=== PATIENT | male | born 1950 | race Caucasian/White ===

== ENCOUNTER → 2020-07-13 | Outpatient (REF) | payer MEDICARE, OTHER | LOC: M SFHCADAM 16:36 | PROVIDERS: ATTEND Physician Assistant Medical | DX: J67.0 Farmer's lung (principal) ==

== ENCOUNTER → 2020-12-13 | Outpatient (REF) | payer MEDICARE, OTHER | LOC: M SFHCADAM 14:18 | PROVIDERS: ATTEND Physician Assistant Medical | DX: Z53.9 Procedure and treatment not carried out, unspecified reason (principal); I48.91 Unspecified atrial fibrillation ==

== ENCOUNTER → 2022-05-26 | Outpatient (CLI) | payer MEDICARE | LOC: M PAIN 09:00 | PROVIDERS: ATTEND Nurse Practitioner Family | DX: Z53.8 Procedure and treatment not carried out for other reasons (principal) ==

== ENCOUNTER → 2022-06-03 | Outpatient (CLI) | payer MEDICARE | LOC: M PAIN 09:15 | PROVIDERS: ATTEND Anesthesiology | DX: Z53.8 Procedure and treatment not carried out for other reasons (principal) ==

== ENCOUNTER → 2022-10-22 | Outpatient (CLI) | payer MEDICARE, OTHER | LOC: M WHC 12:58 | PROVIDERS: ATTEND Internal Medicine Pulmonary Disease | DX: J67.0 Farmer's lung (principal) ==

== ENCOUNTER → 2022-11-04 | Outpatient (CLI) | payer MEDICARE, OTHER | LOC: M WHC 08:15 | DX: J67.0 Farmer's lung (principal) ==

== ENCOUNTER → 2023-04-01 | Outpatient (CLI) | payer MEDICARE, OTHER | LOC: M WHC 12:20 | PROVIDERS: ATTEND Internal Medicine | DX: J67.0 Farmer's lung (principal) ==

== ENCOUNTER → 2023-08-19 | Outpatient (REF) | payer MEDICARE, OTHER | LOC: M SFHCLERA 07:54 | PROVIDERS: ATTEND Nurse Practitioner Family | DX: Z53.9 Procedure and treatment not carried out, unspecified reason (principal); Z11.0 Encounter for screening for intestinal infectious diseases ==

== ENCOUNTER → 2023-12-03 | Outpatient (CLI) | payer MEDICARE, OTHER | LOC: M RAD 07:01 | DX: Z53.9 Procedure and treatment not carried out, unspecified reason (principal) ==

== ENCOUNTER → 2023-12-08 | Outpatient (CLI) | payer MEDICARE, OTHER | LOC: M RAD 10:10 | DX: J67.0 Farmer's lung (principal) ==

== ENCOUNTER → 2023-12-15 | Outpatient (CLI) | payer MEDICARE, OTHER | LOC: M RAD 14:39 | DX: J67.0 Farmer's lung (principal) ==